=== PATIENT | female | born 1945 | race Caucasian/White ===

== ENCOUNTER 2018-02-24 00:20 | Inpatient (IN) | payer MEDICARE, OTHER ==
[2018-02-24] MEDS ORDERED: MORPHINE SULFATE 4 MG/ML SYRG IM ONE (00:45)
[2018-02-24] MEDS ORDERED: diphenhydrAMINE HCL 50 MG/ML VIAL IM ONE (00:46)
[2018-02-24] MEDS ORDERED: MORPHINE SULFATE 4 MG/ML SYRG ONE (00:49)
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
[2018-02-24] MEDS ORDERED: NORMAL SALINE 1,000 ML IV ONE (03:18)
[2018-02-24 03:49] LABS: Mean Corpuscular Hemoglobin 15.5 pg (27-31); Mean Corpuscular Hgb Conc 22.8 g/dl (32-36); Mean Platelet Volume 8.9 fl (8-12.5); Neutrophil # 9.2 K/mm3 (1.3-6.0); Neutrophil % 75.7 % (42-75.0); Platelet Count 539 K/mm3 (150-450); Red Cell Distribution Width 29.9 % (11.5-14.0); White Blood Count 12.2 K/mm3 (4.0-10.5)
[2018-02-24 03:52] LABS: Albumin * 2.9 gm/dl (3.4-5.0); Anion Gap 10.2 mmol/L (6.8-13.8); BUN/Creatinine Ratio 21.2 (9.0-21.6); Bilirubin, Total 0.4 mg/dL (0.0-1.1); Ca. Corrected For Albumin 8.9 mg/dL (8.4-10.2); Calcium * 8.3 mg/dL (7.9-10.9); Potassium 4.2 mmol/L (3.4-4.6); Total Protein 6.3 gm/dL (6.2-8.2)
[2018-02-24 03:53] LABS: Hemoglobin 3.1 gm/dL (12.5-16.0)
[2018-02-24 03:54] LABS: Hematocrit 13.6 % (37.0-47.0)
[2018-02-24] MEDS ORDERED: ACETAMINOPHEN 325 MG TABLET PO ONE (03:57)
[2018-02-24] MEDS ORDERED: diphenhydrAMINE HCL 50 MG/ML VIAL IV ONE (03:57)
[2018-02-24] MEDS ORDERED: ACETAMINOPHEN 325 MG TABLET ONE (05:36)
[2018-02-24 06:06] LABS: Urine Bilirubin Negative (NEGATIVE); Urine Blood Negative /ul (NEGATIVE); Urine Ketone Negative (NEGATIVE); Urine Protein Negative (NEGATIVE); Urine Specific Gravity 1.015 SP.GR. (1.005-1.010); Urine Urobilinogen Normal (NORMAL)
[2018-02-24 06:21] LABS: Urine Appearance Slightly Cloudy (CLEAR); Urine Bacteria 4+; Urine Color Yellow; Urine Nitrite Positive (NEGATIVE); Urine RBC None Seen /hpf (0-5); Urine WBC 0-5 /hpf (0-5)
[2018-02-24 06:22] LABS: Urine Renal Epithelial Cell TRACE /hpf
[2018-02-24] MEDS ORDERED: FUROSEMIDE 10 MG/ML VIAL IV ONE ×3 (08:00→20:00)
--- NOTE | 2018-02-24 09:06 | CONS ---
- Reason for consultation (1) Fracture of greater trochanter of left femur Date of Service: 02/24/18 HPI - General Date of Service: 02/24/18 Narrative: 73-year-old female presents status post a fall with left hip pain. Patient notes she was at home when she tripped over her small dog and fell onto her left hip. After she had significant pain that gradually increased with walking. Patient presented to the ER where she was evaluated for left hip pain revealed a left greater trochanteric fracture. Patient today states her pain is a 5/10. She notes that while resting she has no significant pain. She has not been up to weight-bear since presented to the ER. She notes the pain is better with rest, worse with movement. Source: patient Exam Limitations: no limitations - History of Present Illness Allergies/Adverse Reactions: Allergies No Known Allergies Allergy (Unverified 02/24/18 00:25) Home Medications: Home Medications Medication Instructions Recorded Last Taken NK 02/24/18 Unknown Procedures Excision of lesion of tendon sheath of hand (12/21/99) Exploration of tendon sheath of hand (12/21/99) Medications - Medications Current Medications: Current Medications Sodium Chloride (Sodium Chloride 0.9%) 1,000 mls @ 125 mls/hr IV .Q8H ONE Stop: 02/24/18 11:17 Last Admin: 02/24/18 03:23 Dose: 125 mls/hr Physical Examination - Exam Vital Signs: Vital Signs - Last Taken Temp 37.7 C 02/24/18 07:53 Pulse 79 02/24/18 08:02 Resp 14 02/24/18 07:53 BP 92/54 02/24/18 08:02 Pulse Ox 96 02/24/18 07:53 O2 Oxygen Delivery Method Room Air Constitutional: Present: Alert, Cooperative, No distress Extremity: Present: other - Left lower extremity--> dorsal pedis pulse 2+, 4+/5 flexion and extension of knee, sensation intact to light touch, mild to moderate tenderness to palpation over greater trochanter Eye contact: Present: cooperative Thoughts: Present: normal thought pattern - Results and Findings: Narrative: - 73-year-old female with a left greater trochanteric fracture, status post fall - Partial weightbearing, patient measured 25% of body weight with a wheeled walker, patient's need for wheeled walker due to inability to properly ambulate without. Due to fracture pattern gradual return to weightbearing extended over a period of time will be required. Without walker patient will be unable to ambulate, may have increased pain, increased risk for fall, will affect her ability to perform activities of daily living. - Formal evaluation by PT pending - Patient will follow-up in 1 week in orthopedic outpatient clinic - Patient will be given oral pain medication as needed. Patient can continue using Tylenol as tolerated, if pain increases or becomes uncontrollable, we will prescribe liquid [place] when necessary - Hemoglobin 3.1, management per medicine - By mouth diet as tolerated Lab/Microbiology results last 24 hrs: Abnormal/Pending Laboratory Last 24 HRS 02/24/18 02/24/18 02/24/18 06:01 04:11 03:33 WBC RBC Hgb Hct MCV MCH MCHC RDW Plt Count Immature Gran % (Auto) Immature Gran # (Auto) Neutrophils % Lymphocytes % Monocytes % Neutrophils # Monocytes # Chloride 108 H ALT 16 L Albumin 2.9 L Urine Nitrate Positive H Urine Bacteria 4+ H Crossmatch See Detail 02/24/18 03:33 WBC 12.2 H RBC 2.00 L Hgb 3.1 L* Hct 13.6 L* MCV 68.0 L MCH 15.5 L MCHC 22.8 L RDW 29.9 H Plt Count 539 H Immature Gran % (Auto) 0.80 H Immature Gran # (Auto) 0.10 H Neutrophils % 75.7 H Lymphocytes % 13.6 L Monocytes % 9.2 H Neutrophils # 9.2 H Monocytes # 1.1 H Chloride ALT Albumin Urine Nitrate Urine Bacteria Crossmatch - Assessments/Findings (1) Fracture of greater trochanter of left femur Problem: Acute
[2018-02-24] MEDS ORDERED: ACETAMINOPHEN 160 MG/5 ML BTL PO PRN (09:07)
[2018-02-24] MEDS: CIPROFLOXACIN IN 5 % DEXTROSE 200 MG/100 ML BAG IV SCH ×2 (12:04→22:30)
[2018-02-24] MEDS ORDERED: DIATRIZOATE MEGLUMINE, SODIUM 30 ML BTL PO ONE (14:30)
--- NOTE | 2018-02-24 15:00 | HP ---
Chief Complaint - Chief Complaint Date of Service: 02/24/18 Time of Service: 14:22 Chief Complaint: I fell on my left side last night, I have left hip/lep pain History of Present Illness: 73 y/o female with PMHx of osteoporosis, COPD was brought to the ER due to left hip pain secondary to a fall that occurred at her home last night. Px reports that she was walking to the living room from her kitchen and tripped over her little poodle that she did not see laying there. She reports falling on her left side and landing on her hip. After the fall, walking became difficult due to pain in the left hip and left leg. Px denies head trauma and LOC before or after the fall. She also reports occasional dizziness and generalized weakness for the past few week. She has not seen a doctor or had recent routine labs in over a year. 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 Smoking Status Light tobacco smoker Have you smoked in the past 12 Yes months Do you dip or chew tobacco No Alcohol Use none Drug Use none No Social History Section defined Peds Patient Hx - Developmental: No Pertinent Hx Peds Patient Hx - Medical: No Pertinent Hx Peds Patient Hx - Cardiac/Respiratory: No Pertinent Hx Peds Patient Hx - Surgical: No Surgical History Patient History - Cancer: No Hx of Cancer Review Of Systems (GEN) - Review of Systems Generalized/Overall Review: Present: Weakness, Malaise, Weight loss EENTM: Present: No Symptoms Reported Respiratory: Present: No Symptoms Reported Cardiac: Present: No Symptoms Reported Abdominal: Present: No Symptoms Reported Genitourinary: Present: Burning, Dysuria Musculoskeletal: Present: Joint Pain, Other - Left hip pain Neurological: Present: No Symptoms Reported Skin: Present: Change in Color, Other - Pale skin and pale conjunctivae. Misc: All systems neg except as marked Immunizations: IMMUNIZATION HX Immunizations Up to Date Yes History of Influenza Vaccine No Allergies/Adverse Reactions: Allergies Allergy/AdvReac Type Severity Reaction Status Date / Time No Known Allergies Allergy Unverified 02/24/18 00:25 Home Medications: HOME MEDICATIONS NK 02/24/18 [Last Taken Unknown] Exam - Exam Vital Signs: Vital Signs - Last Taken Temp 37.3 C 02/24/18 11:55 Pulse 77 02/24/18 11:59 Resp 14 02/24/18 11:55 BP 104/58 02/24/18 11:59 Pulse Ox 98 02/24/18 11:55 Constitutional: Present: Alert, Oriented x3, Cooperative, Well developed, No distress, Elderly, Thin and frail ENT Exam: Present: normal ENT inspection, hearing grossly normal, pharynx normal, TMs normal Eye Exam: bilateral eye: normal inspection, PERRL, EOMI, conjunctivae pale Neck: Present: non-tender, full range of motion, supple, normal inspection, trachea midline Back Exam: Present: normal inspection, no CVA tenderness, no vertebral tenderness Breasts: Present: Exam deferred Respiratory: Present: chest non-tender, lungs clear, normal breath sounds, no respiratory distress Cardiovascular/Chest: Present: normal peripheral pulses, regular rate, rhythm, no chest tenderness, no edema, no gallop, no JVD, no murmur Peripheral Pulses: carotid (R): 3+, carotid (L): 3+, femoral (R): 3+, femoral (L): 3+, dorsalis-pedis (R): 3+, dorsalis-pedis (L): 3+ Abdomen: Present: Normal bowel sounds, soft, nontender /Rectal: Present: Other - Rectal digital exam negative for signs of bleeding. Extremity: Present: no pedal edema, leg pain, other - Left hip tenderness. 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, alert, normal mood/affect, oriented x 3, dizzy/light-headedness Appearance: Present: appropriate appearance, appropriate insight, neat, no memory impairment Eye contact: Present: cooperative, good eye contact, normal speech Thoughts: Present: normal thought pattern, no apparent hallucination Diagnostic Studies: Abnormal Lab Results 02/24/18 02/24/18 02/24/18 Range/Units 03:33 03:33 04:11 WBC 12.2 H (4.0-10.5) K/mm3 RBC 2.00 L (4.2-5.4) M/mm3 Hgb 3.1 L* (12.5-16.0) gm/dL Hct 13.6 L* (37.0-47.0) % MCV 68.0 L (78-100) fl MCH 15.5 L (27-31) pg MCHC 22.8 L (32-36) g/dl RDW 29.9 H (11.5-14.0) % Plt Count 539 H (150-450) K/mm3 Immature Gran % (Auto) 0.80 H (0.001-0.429) % Immature Gran # (Auto) 0.10 H (0.000-0.0310) K/mm3 Neutrophils % 75.7 H (42-75.0) % Lymphocytes % 13.6 L (20-51) % Monocytes % 9.2 H (0.0-9) % Neutrophils # 9.2 H (1.3-6.0) K/mm3 Monocytes # 1.1 H (0.0-1.0) k/mm3 Chloride 108 H (97-106) mmol/L ALT 16 L (19-67) U/L Albumin 2.9 L (3.4-5.0) gm/dl Urine Nitrate (NEGATIVE) Urine Bacteria (NONE) Crossmatch See Detail 02/24/18 Range/Units 06:01 WBC (4.0-10.5) K/mm3 RBC (4.2-5.4) M/mm3 Hgb (12.5-16.0) gm/dL Hct (37.0-47.0) % MCV (78-100) fl MCH (27-31) pg MCHC (32-36) g/dl RDW (11.5-14.0) % Plt Count (150-450) K/mm3 Immature Gran % (Auto) (0.001-0.429) % Immature Gran # (Auto) (0.000-0.0310) K/mm3 Neutrophils % (42-75.0) % Lymphocytes % (20-51) % Monocytes % (0.0-9) % Neutrophils # (1.3-6.0) K/mm3 Monocytes # (0.0-1.0) k/mm3 Chloride (97-106) mmol/L ALT (19-67) U/L Albumin (3.4-5.0) gm/dl Urine Nitrate Positive H (NEGATIVE) Urine Bacteria 4+ H (NONE) Crossmatch Laboratory Results WBC 12.2 K/mm3 (4.0-10.5) H 02/24/18 03:33 RBC 2.00 M/mm3 (4.2-5.4) L 02/24/18 03:33 Hgb 3.1 gm/dL (12.5-16.0) L* 02/24/18 03:33 Hct 13.6 % (37.0-47.0) L* 02/24/18 03:33 MCV 68.0 fl (78-100) L 02/24/18 03:33 MCH 15.5 pg (27-31) L 02/24/18 03:33 MCHC 22.8 g/dl (32-36) L 02/24/18 03:33 RDW 29.9 % (11.5-14.0) H 02/24/18 03:33 Plt Count 539 K/mm3 (150-450) H 02/24/18 03:33 MPV 8.9 fl (8-12.5) 02/24/18 03:33 Immature Gran % (Auto) 0.80 % (0.001-0.429) H 02/24/18 03:33 Immature Gran # (Auto) 0.10 K/mm3 (0.000-0.0310) H 02/24/18 03:33 Neutrophils % 75.7 % (42-75.0) H 02/24/18 03:33 Lymphocytes % 13.6 % (20-51) L 02/24/18 03:33 Monocytes % 9.2 % (0.0-9) H 02/24/18 03:33 Eosinophils % 0.6 % (0.0-3.0) 02/24/18 03:33 Basophils % 0.1 % (0.0-1.0) 02/24/18 03:33 Nucleated RBC % 0.0 k/mm3 (0-1) 02/24/18 03:33 Neutrophils # 9.2 K/mm3 (1.3-6.0) H 02/24/18 03:33 Lymphocytes # 1.66 k/mm3 (1.5-3.5) 02/24/18 03:33 Monocytes # 1.1 k/mm3 (0.0-1.0) H 02/24/18 03:33 Eosinophils # 0.1 k/mm3 (0.0-0.7) 02/24/18 03:33 Absolute Basophils 0.0 k/mm3 (0.0-0.1) 02/24/18 03:33 Sodium 141 mmol/L (132-142) 02/24/18 03:33 Plasma Sodium 141 mmol/L (130-142) 02/24/18 03:33 Potassium 4.2 mmol/L (3.4-4.6) 02/24/18 03:33 Chloride 108 mmol/L (97-106) H 02/24/18 03:33 Carbon Dioxide 27.0 mmol/L (24-32.6) 02/24/18 03:33 Anion Gap 10.2 mmol/L (6.8-13.8) 02/24/18 03:33 BUN 14 mg/dL (3-23) 02/24/18 03:33 Creatinine 0.66 mg/dL (0.4-1.4) 02/24/18 03:33 Est GFR (Non-Af Amer) 93 mL/min (60-130) 02/24/18 03:33 BUN/Creatinine Ratio 21.2 (9.0-21.6) 02/24/18 03:33 Random Glucose 98 mg/dL (70-110) 02/24/18 03:33 Calcium 8.3 mg/dL (7.9-10.9) 02/24/18 03:33 Calcium Adj for Albumin 8.9 mg/dL (8.4-10.2) 02/24/18 03:33 Total Bilirubin 0.4 mg/dL (0.0-1.1) 02/24/18 03:33 AST 18 U/L (0-48) 02/24/18 03:33 ALT 16 U/L (19-67) L 02/24/18 03:33 Alkaline Phosphatase 88 U/L (50-170) 02/24/18 03:33 Total Protein 6.3 gm/dL (6.2-8.2) 02/24/18 03:33 Albumin 2.9 gm/dl (3.4-5.0) L 02/24/18 03:33 Urine Color Yellow 02/24/18 06:01 Urine Appearance Slightly cloudy (CLEAR) 02/24/18 06:01 Urine pH 7.0 pH (5.0-7.0) 02/24/18 06:01 Ur Specific [place] 1.015 SP.GR. (1.005-1.010) 02/24/18 06:01 Urine Protein Negative mg/dL (NEGATIVE) 02/24/18 06:01 Urine Glucose (UA) Negative mg/dL (NEGATIVE) 02/24/18 06:01 Urine Ketones Negative mg/dL (NEGATIVE) 02/24/18 06:01 Urine Blood Negative /ul (NEGATIVE) 02/24/18 06:01 Urine Nitrate Positive (NEGATIVE) H 02/24/18 06:01 Urine Bilirubin Negative mg/dl (NEGATIVE) 02/24/18 06:01 Urine Urobilinogen Normal EU/dl (NORMAL) 02/24/18 06:01 Ur Leukocyte Esterase Negative /ul (NEGATIVE) 02/24/18 06:01 Urine RBC None seen /hpf (0-5) 02/24/18 06:01 Urine WBC 0-5 /hpf (0-5) 02/24/18 06:01 Ur Epithelial Cells 0-5 /hpf (0-5) 02/24/18 06:01 Ur Renal Epithelial Cell Trace /hpf (NONE) 02/24/18 06:01 Urine Bacteria 4+ (NONE) H 02/24/18 06:01 Urine Culture Comments Culture to follow 02/24/18 06:01 Stool Occult Blood Negative 02/24/18 11:08 Blood Type A Positive 02/24/18 04:11 Antibody Screen Negative 02/24/18 04:11 Crossmatch See Detail 02/24/18 04:11 Assessment/Plan - Narrative Narrative: Ambika was found to have a greater trochanteric fracture of her left femur confirmed by Ct, ortho was consulted. After evaluation of patient and imaging studies, ortho recommended no surgery since the fracture is nondisplaced. They also requested an evaluation and treatment by PT, as well as a walker for ambulation. Px was also discovered with critically low hemoglobin level of 3.1, lab was rechecked and the result was the same. Rectal digital exam was performed and was negative for rectal bleeding. Px denied any abdominal pain or melena or any other type of bleeding recently. She denies knowledge of history of anemia. Abdominal Ct w/ contrast and multiple transfusions of PRBC were ordered. U/A was also positive for UTI and patient reported dysuria for the past few days. Iv antibiotics and urine cultures were ordered. - Assessment/Plan (1) Fracture of greater trochanter of left femur Problem: Acute Qualifiers: Fracture alignment: nondisplaced (2) Anemia Problem: Acute Qualifiers: Anemia type: unspecified type Qualified Code(s): D64.9 - Anemia, unspecified (3) UTI (urinary tract infection) Problem: Acute (4) Osteoporosis Problem: Chronic Qualifiers: Osteoporosis type: unspecified (5) Frail elderly Problem: Chronic
[2018-02-24 21:41] LABS: Hematocrit 30.1 % (37.0-47.0); Hemoglobin 9.3 gm/dL (12.5-16.0); Mean Cell Volume 77.8 fl (78-100); Mean Corpuscular Hgb Conc 30.9 g/dl (32-36); Mean Platelet Volume 9.1 fl (8-12.5); NRBC# 0.1 k/mm3 (0-1); Neutrophil # 10.5 K/mm3 (1.3-6.0); Neutrophil % 81.9 % (42-75.0); Platelet Count 498 K/mm3 (150-450); Red Blood Count 3.87 M/mm3 (4.2-5.4); Red Cell Distribution Width 26.6 % (11.5-14.0); White Blood Count 12.8 K/mm3 (4.0-10.5)
[2018-02-24] MEDS: HYDROcodone/ACETAMINOPHEN 5 ML UDC PO PRN (22:53)
[2018-02-25] MEDS: HYDROcodone/ACETAMINOPHEN 5 ML UDC PO PRN ×3 (07:46→16:18)
[2018-02-25] MEDS: CIPROFLOXACIN IN 5 % DEXTROSE 200 MG/100 ML BAG IV SCH (10:24)
[2018-02-25] MEDS: FERROUS SULFATE 325 MG TABLET PO SCH ×2 (12:08→16:21)
--- NOTE | 2018-02-25 13:09 | DS ---
(1) Fracture of greater trochanter of left femur Problem: Acute Qualifiers: Fracture alignment: nondisplaced (2) Anemia Problem: Acute Qualifiers: Anemia type: unspecified type Qualified Code(s): D64.9 - Anemia, unspec ified (3) UTI (urinary tract infection) Problem: Acute (4) Osteoporosis Problem: Chronic Qualifiers: Osteoporosis type: unspecified (5) Frail elderly Problem: Chronic Description of Stay: 73 y/o female was admitted for left nondisplaced greater trochanteric femur fracture secondary to a fall in her home. Px was evaluated by ortho who recommended PT and pain management, and no surgery. Patient was also found to have marked anemia on ER labs with a Hmg of 3.1, and was subsequntly transfused 3 units of PRBCs. There were no adverse events reported during the transfusion and the patient reports feeling better and stronger since the transfusion. She was counseled on the importance of better nutrition, one rich in healthy calories, Iron, and nutrients. Ambika is very thin and frail and admits to not eat ing as she should. She was also instructed to establish with a PCP since she says she doesn't have one and hasn't been to the doctors in a few years. I agreed to accepting her as a patient in the clinic, so she was instructed to call and make an appointment. Ambika is homebound due to partial weightbearing status and generalized weakness secondary to malnutrition and is being discharged with HHC through [facility], face to face is being arranged for at home PT for increased strengthening, gait training, and education on safe mobility with a walker and transfers. A walker for safe mobility, fci for medication monitoring and education, and bath aide will also be needed for assistance with bath cares. The need for home health care skilled services is directly related to the time spent face to face with /. Patient was also treated with IV antibiotics for UTI, she will also be discharged with 3 additional days of oral antibiotics as well as medication for pain control. Procedures Performed: none Results and Findings: Pending Mircobiology Results 02/24/18 06:21 Urine,Catheterized Urine Culture - Preliminary Gram Negative Bacilli Gram Negative Bacilli#2 Lab Pending Results 02/24/18 03:33: WBC 12.2 H, RBC 2.00 L, Hgb 3.1 L*, Hct 13.6 L*, MCV 68.0 L, MCH 15.5 L, MCHC 22.8 L, RDW 29.9 H, Plt Count 539 H, MPV 8.9, Immature Gran % (Auto) 0.80 H, Immature Gran # (Auto) 0.10 H, Neutrophils % 75.7 H, Lymphocytes % 13.6 L, Monocytes % 9.2 H, Eosinophils % 0.6, Basophils % 0.1, Nucleated RBC % 0.0, Neutrophils # 9.2 H, Lymphocytes # 1.66, Monocytes # 1.1 H, Eosinophils # 0.1, Absolute Basophils 0.0 02/24/18 03:33: Sodium 141, Plasma Sodium 141, Potassium 4.2, Chloride 108 H, Carbon Dioxide 27.0, Anion Gap 10.2, BUN 14, Creatinine 0.66, Est GFR (Non-Af Amer) 93, BUN/Creatinine Ratio 21.2, Random Glucose 98, Calcium 8.3, Calcium Adj for Albumin 8.9, Total Bilirubin 0.4, AST 18, ALT 16 L, Alkaline Phosphatase 88, Total Protein 6.3, Albumin 2.9 L 02/24/18 04:11: Blood Type A Positive, Antibody Screen Negative, Crossmatch See Detail 02/24/18 06:01: Urine Color Yellow, Urine Appearance Slightly cloudy, Urine pH 7.0, Ur Specific [place] 1.015, Urine Protein Negative, Urine Glucose (UA) Negative, Urine Ketones Negative, Urine Blood Negative, Urine Nitrate Positive H, Urine Bilirubin Negative, Urine Urobilinogen Normal, Ur Leukocyte Esterase Negative, Urine RBC None seen, Urine WBC 0-5, Ur Epithelial Cells 0-5, Ur Renal Epithelial Cell Trace, Urine Bacteria 4+ H, Urine Culture Comments Culture to follow 02/24/18 11:08: Stool Occult Blood Negative 02/24/18 21:35: WBC 12.8 H, RBC 3.87 L, Hgb 9.3 L, Hct 30.1 L, MCV 77.8 L, MCH 24.0 L, MCHC 30.9 L, RDW 26.6 H, Plt Count 498 H, MPV 9.1, Immature Gran % (Auto) 1.20 H, Immature Gran # (Auto) 0.15 H, Neutrophils % 81.9 H, Lymphocytes % 7.6 L, Monocytes % 8.3, Eosinophils % 0.3, Basophils % 0.7, Nucleated RBC % 0.1, Neutrophils # 10.5 H, Lymphocytes # 0.98 L, Monocytes # 1.1 H, Eosinophils # 0.0, Absolute Basophils 0.1 Discharge Location: Home Disposition: Home Health Service [facility] Agency: [facility] Home Health Condition: Stable Face to Face Encounter completed per [facility] Guidelines: Yes Discharge Activity: Activity as tolerated Discharge Diet: General/regular food Referrals: Jane Cheng MD [Primary Care Provider] - Halie Ware MD [Staff Physician] - Problem Oriented Discharge Instructions to Patient/Family: Fall Prevention in the Home, [id number], Urinary Tract Infection, Adult, [id number] Additional Patient Instructions (free text): Fax discharge orders and information to [facility] as new patient. Call report at discharge. Follow up wth Dr. Ware in 1 week and Orthopedic in 1 week. [facility] will call you Monday with appointments. LAB- Urinalysis in 1 week please have it done before doctor appointment. Prescriptions (Any new or edited meds): Ciprofloxacin HCl [Cipro] 250 mg PO BID 3 Days #6 tablet Ferrous Sulfate 325 mg PO TID 90 Days #270 tablet. oxyCODONE HCL/ACETAMINOPHEN [Percocet 5 MG/325 MG] 1 tab PO Q6H 6 Days #24 tablet Complete Home Medications List: Complete Home Medication List: Ciprofloxacin HCl [Cipro] 250 mg PO BID 3 Days #6 tablet 02/25/18 Ferrous Sulfate 325 mg PO TID 90 Days #270 tablet. 02/25/18 Ferrous Sulfate 325 mg PO TIDWM tablet 02/25/18 oxyCODONE HCL/ACETAMINOPHEN [Percocet 5 MG/325 MG] 1 tab PO Q6H 6 Days #24 tablet 02/25/18 Amb Orders for Discharge: Urinalysis Time Frame: 1 Week, Location: Laboratory
[2018-02-25 15:40] VITALS: BP 106/68
== END 2018-02-25 16:40 | disposition home health service (06) | DRG 536 ==
LOC: ER 00:20 → MS 03:17
PROVIDERS: ADMIT Family Medicine; ATTEND Family Medicine
CPT/HCPCS: 36415; 71010; 71045; 73502; 73700; 74177; 80053; 81001; 82272; 85025; 86850; 86900; 87077; 87086; 87186; 90686; 93005; 96360; 96372; 97116; 97161; 99285; P9016